=== PATIENT | female | born 1980 | race Caucasian/White ===

== ENCOUNTER 2024-12-01 17:30 | Emergency (ER) | payer MEDICAID, SELFPAY ==
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
[2024-12-01 17:48] VITALS: BP 170/93; PULSE 115; RESP 18; TEMP 37.6; O2SAT 97; BMI 39.1
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
[2024-12-01 17:59] VITALS: PULSE 115; RESP 20; O2SAT 98
[2024-12-01] MEDS: MORPHINE SULF INJ 4 MG/ML VIAL IM ×2 (18:30→22:15)
--- NOTE | 2024-12-01 19:21 | PD.EDADDENDU ---
Emergency Room Addendum Addendum Narrative: 1800: Care assumed from Dr. Jin (emergency physician). Past medical, surgical, social and family history reviewed. Vitals and home medications reviewed. Results and treatment plan discussed. I will assume the care of the patient at this time and will follow the patient, pending . The following addendum documentation note is intended to reflect any pending information, findings, or radiology results not included in the patient?s initial chart by the previous shift scribe.
[2024-12-01] MEDS: DIPHTH,PERTUSS(ACELL),TET VAC 0.5 ML SYR- ADULT IMi (20:01)
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
== END 2024-12-01 22:25 | disposition home or self-care (01) ==
PROVIDERS: Emergency Provider Emergency Medicine; PCP Family Medicine
DX: S82.831A Other fracture of upper and lower end of right fibula, initial encounter for closed fracture (principal); S82.54XA Nondisplaced fracture of medial malleolus of right tibia, initial encounter for closed fracture; S81.812A Laceration without foreign body, left lower leg, initial encounter; S99.912A Unspecified injury of left ankle, initial encounter; S99.922A Unspecified injury of left foot, initial encounter; S99.921A Unspecified injury of right foot, initial encounter; S89.91XA Unspecified injury of right lower leg, initial encounter; S39.93XA Unspecified injury of pelvis, initial encounter; M79.642 Pain in left hand; V89.9XXA Person injured in unspecified vehicle accident, initial encounter; Z23 Encounter for immunization
CPT/HCPCS: 29125; 72170; 73130; 73562; 73590; 73610; 73630; 90471; 90715; 96372; 99284; J2270; A9270